=== PATIENT | female | born 1935 | race Two or more races ===

== ENCOUNTER 2019-01-20 20:56 | Inpatient (IN) | payer MEDICARE, OTHER ==
[~2019-01-20] VITALS: Ht 154.9 cm; Wt 70.4 kg
--- NOTE | 2019-01-20 21:15 | NUR ---
LORI FROM HOME C/O SOB X1.5DAYS. PER RA, LABORED BREATHING ON SCENE PT ARRIVED ON CPAP. PT LABORED BREATHING, TACHYPNEIC, SPEAKING ON HER COUNCIL LANGUAGE, FAMILY @ BS HELPING WITH TRANSLATION. DENIES CP, DIZZINESS, N/V AT THIS TIME. PLACED ON HISTORIC SITES SUPERVISOR. DR. GORDON @ BS FOR EVAL. PLACED ON BIPAP MACHINE. WILL CONT TO MONITOR.
[2019-01-20 21:32] VITALS: BP 98/36
[2019-01-20 21:42] LABS: BASOPHILS % (AUTO) 0.3 % (0.0-2.0); HEMATOCRIT 27 % (33-45); HEMOGLOBIN 8.8 g/dL (11.5-14.8); LYMPHOCYTES # (AUTO) 4.6 /CMM (0.8-4.8); LYMPHOCYTES % (AUTO) 47.2 % (20.0-44.0); MEAN CORPUSCULAR HGB CONC 33 g/dl (31.0-36.0); MEAN CORPUSCULAR VOLUME 100 fL (82-100); MONOCYTES # (AUTO) 0.7 /CMM (0.1-1.30); MONOCYTES % (AUTO) 7.1 % (2.0-12.0); NEUTROPHILS # (AUTO) 4.3 /CMM (1.8-8.9); NEUTROPHILS % (AUTO) 43.4 % (43.0-81.0); PLATELET COUNT (AUTO) 250 /CMM (150-450); RED BLOOD CELL COUNT(AUTO) 2.69 MIL/uL (4.0-5.2); WHITE BLOOD COUNT (AUTO) 9.8 K/uL (4.3-11.0)
--- NOTE | 2019-01-20 21:50 | NUR ---
CALLED RT FOR BREATHING TX.
[2019-01-20] MEDS ORDERED: FUROSEMIDE 40 MG/4 ML VIAL ONE (21:57)
[2019-01-20] MEDS ORDERED: ALBUTEROL FS 2.5 MG/3 ML VIAL.NEB NEB ONE (22:00)
[2019-01-20] MEDS ORDERED: IPRATROPIUM NEB FS 0.5 MG/2.5 ML AMPUL.NEB NEB ONE (22:00)
[2019-01-20] MEDS ORDERED: FUROSEMIDE 40 MG/4 ML VIAL IV ONE (22:00)
[2019-01-20] MEDS ORDERED: ALBUTEROL FS 2.5 MG/3 ML VIAL.NEB ONE (22:12)
[2019-01-20] MEDS ORDERED: IPRATROPIUM NEB FS 0.5 MG/2.5 ML AMPUL.NEB ONE (22:12)
--- NOTE | 2019-01-20 22:20 | NUR ---
MEDICATED ORDERED BY DR. GORDON. PT GETTING BREATHING TX. PT BRITTANY WELL. FAMILY AT BS & WILL CONT TO MONITOR.
[2019-01-20 22:24] LABS: CALCIUM, SERUM 8.6 mg/dL (8.5-10.1); CARBON DIOXIDE 18 mmol/L (21-32); CHLORIDE 106 mmol/L (98-107); CREATININE 1.6 mg/dL (0.6-1.3); GLUCOSE 312 mg/dL (74-106); POTASSIUM 5.5 mmol/L (3.5-5.1); SODIUM SERUM 137 mmol/L (136-145); UREA NITROGEN, BLOOD 27 mg/dL (7-18)
[2019-01-20 22:27] LABS: ABG BASE EXCESS -3.7 mmol/L; ABG OXYGEN SATURATION 98.4 % (92.0-98.5); ABG PCO2 35.8 mmHg (35.0-45.0); ABG PH 7.383 (7.350-7.450); ABG PO2 162.7 mmHg (75.0-100.0); AaDO2 81.3 mmHg; COHb 0.3 % (0.5-1.5); MetHb 0.5 % (0.0-1.5); O2Hb 97.6 % (94.0-97.0); PEEP,BG 5 cm H2O; SITE, ABG Right Radial; VENT MODE, BG BIPAP 18/5
[2019-01-20 22:39] LABS: ALANINE AMINOTRANSFERASE 28 U/L (12-78); ALBUMIN 2.5 g/dL (3.4-5.0); ALKALINE PHOSPHATASE 94 U/L (46-116); ASPARTATE AMINOTRANSFERASE 27 U/L (15-37); B-TYPE NATRIURETIC PEPTIDE 15877 PG/ML (0-125); BILIRUBIN,DIRECT 0.2 mg/dL (0.0-0.2); BILIRUBIN,TOTAL 0.6 mg/dL (0.2-1.0); TOTAL PROTEIN, SERUM 6.7 g/dL (6.4-8.2)
[2019-01-20 22:43] LABS: APPEARANCE,URINE Clear (CLEAR); BILIRUBIN,URINE Negative (NEGATIVE); BLOOD, URINE Negative Ery/uL (NEGATIVE); COLOR,URINE Yellow (YELLOW); KETONES,URINE Negative (NEGATIVE); LEUKOCYTE ESTERASE ,URINE Negative (NEGATIVE); NITRITE, URINE Negative (NEGATIVE); PH,URINE 5.5 (5.0-8.0); PROTEIN,URINE Negative (NEGATIVE); UGLUCOSE Negative (NEGATIVE); UROBILINOGEN,URINE 0.2 EU/dL (0.2)
--- NOTE | 2019-01-20 22:50 | NUR ---
PT FEELING A LOT BETTER. DENIES SOB, CP, DIZZINESS, N/V @ THIS TIME. PT BRITTANY BIPAP. SKIN PINK WARM & DRY, NO RESP DISTRESS NOTED @ THIS TIME. WILL CONT TO MONITOR.
[2019-01-20] MEDS ORDERED: ASPIRIN 325 MG TABLET PO SCH (23:00)
[2019-01-20] MEDS ORDERED: CEFTRIAXONE 1GM BAG (ER ONLY) 1 GM/50 ML PIGGYBACK IV ONE (23:00)
[2019-01-20] MEDS ORDERED: AZITHROMYCIN 500 MG in IV D5W 250 ML IV SCH (23:00)
--- NOTE | 2019-01-20 23:35 | NUR ---
ASSEMBLER AND TESTER ELECTRONICS NOTES Received patient from ER ,who presented today from home C/O SOB x 1-1/2 day getting worst.Has HX of HTN,GA ,AFIB,CHF. Was placed in BIPAP while in ER due to severe SOB,was given Lasix 40 mg IV and neb treatments. Lactic acid=5,HIU=74247,Troponin=0.11. Patient awake,alert,(Turkish Speaking,does not understand Czech) ,follows simple commands,family at bedside.Breathing more comfortably,off BIPAP for now ,on NRM 100 %,not in acute distress but still with mild SOB on exertion.Comfort care done,needs attended.Will closely monitor if BIPAP still needed.
--- NOTE | 2019-01-20 23:40 | NUR ---
REPORT GIVEN TO DONTE DIAZ FOR CONT OF CARE.
[2019-01-21] VITALS (29 sets, daily range): BP systolic 75–120; BP diastolic 47–75
[2019-01-21] MEDS ORDERED: Z GUARD REMEDY 2 OZ OINT TP PRN
[2019-01-21] MEDS ORDERED: MAGNESIUM HYDROXIDE 30 ML UDC PO PRN
[2019-01-21] MEDS ORDERED: ACETAMINOPHEN 325 MG TABLET PO PRN
[2019-01-21] MEDS ORDERED: ONDANSETRON HCL/PF 4 MG/2 ML VIAL IVP PRN
[2019-01-21] MEDS ORDERED: HYDROCODONE/APAP 5/325MG 1 EACH TABLET PO PRN
[2019-01-21] MEDS ORDERED: ZOLPIDEM TARTRATE 5 MG TABLET PO PRN
[2019-01-21] MEDS ORDERED: CEFTRIAXONE 1GM BAG (ER ONLY) 50 ML IV ONE (00:06)
[2019-01-21] MEDS ORDERED: IV NS 0.9% 250 ML IV PRN (00:30)
[2019-01-21] MEDS ORDERED: CEFTRIAXONE 1 G VIAL ONE (00:31)
--- NOTE | 2019-01-21 00:35 | NUR ---
Ceftriaxone given .Ordered in ER but was not given by RN
[2019-01-21] MEDS ORDERED: AZITHROMYCIN 500 MG VIAL ONE (00:41)
[2019-01-21] MEDS: HEPARIN SODIUM, PORCINE 5000 UNITS/1 ML VIAL SQ SCH ×3 (00:52→21:10)
[2019-01-21] MEDS ORDERED: ASA 81 PO (01:11)
[2019-01-21] MEDS ORDERED: APIX2.5T PO (01:11)
[2019-01-21] MEDS ORDERED: ISOSORBIDE MN PO (01:11)
[2019-01-21] MEDS ORDERED: CARV12.52 PO (01:11)
[2019-01-21] MEDS ORDERED: AMIO200T4 PO (01:11)
[2019-01-21] MEDS ORDERED: SITA100T PO (01:11)
[2019-01-21] MEDS ORDERED: HYDR-4077 PO (01:11)
[2019-01-21] MEDS ORDERED: LINA145C PO (01:11)
[2019-01-21] MEDS ORDERED: ATOR80TA PO (01:11)
[2019-01-21] MEDS ORDERED: PANT40TA4 PO (01:11)
[2019-01-21] MEDS: IV NS 0.9% 250 ML IV PRN (01:27)
--- NOTE | 2019-01-21 04:00 | NUR ---
Stable,now on NC 3L/min,tolerating well,saturating 99 % .Not in any acute distress,denies any chest pain.
[2019-01-21 04:35] LABS: BASOPHILS % (AUTO) 0.4 % (0.0-2.0); EOSINOPHILS % (AUTO) 0.4 % (0.0-6.0); HEMATOCRIT 24 % (33-45); LYMPHOCYTES % (AUTO) 35.7 % (20.0-44.0); MEAN CORPUSCULAR HGB CONC 34 g/dl (31.0-36.0); MEAN CORPUSCULAR VOLUME 97 fL (82-100); MONOCYTES # (AUTO) 0.4 /CMM (0.1-1.30); MONOCYTES % (AUTO) 7.5 % (2.0-12.0); NEUTROPHILS # (AUTO) 3.1 /CMM (1.8-8.9); PLATELET COUNT (AUTO) 162 /CMM (150-450); RED BLOOD CELL COUNT(AUTO) 2.48 MIL/uL (4.0-5.2); WHITE BLOOD COUNT (AUTO) 5.5 K/uL (4.3-11.0)
[2019-01-21 04:44] LABS: CALCIUM, SERUM 8.2 mg/dL (8.5-10.1); CARBON DIOXIDE 24 mmol/L (21-32); CHLORIDE 105 mmol/L (98-107); CREATININE 1.5 mg/dL (0.6-1.3); GLUCOSE 176 mg/dL (74-106); MAGNESIUM 1.5 mg/dL (1.8-2.4); PHOSPHORUS 3.7 mg/dL (2.5-4.9); POTASSIUM 4.3 mmol/L (3.5-5.1); SODIUM SERUM 139 mmol/L (136-145); UREA NITROGEN, BLOOD 26 mg/dL (7-18)
[2019-01-21 04:52] LABS: CHOLESTEROL 79 mg/dL (<200); HDL CHOLESTEROL 36 mg/dL (40-60); LDL 36 mg/dL (0-99); TRIGLYCERIDES 71 mg/dL (30-150)
--- NOTE | 2019-01-21 07:00 | NUR ---
STABLE,FOR DOWNGRADE TO TELEMETRY WHEN BED AVAILABLE.TOLERATING NASAL CANNULA,NO SOB.REPORT GIVEN TO LYNNE KENT.
[2019-01-21] MEDS: PANTOPRAZOLE 40 MG TABLET.DR PO SCH (08:28)
[2019-01-21] MEDS: ASPIRIN EC 81 MG TABLET.DR PO SCH (08:28)
[2019-01-21] MEDS: LINAGLIPTIN 5 MG TABLET PO SCH (08:28)
[2019-01-21] MEDS: FUROSEMIDE 40 MG/4 ML VIAL IV SCH ×4 (08:28→20:00)
[2019-01-21] MEDS: Magnesium 1GM/D5W 100ML PREMIX 100 ML IV SCH ×2 (08:28→08:39)
[2019-01-21] MEDS ORDERED: ASPIRIN 81 MG TAB.CHEW PO SCH (09:00)
[2019-01-21] MEDS ORDERED: Magnesium 1GM/D5W 100ML PREMIX 100 ML IV SCH (09:26)
[2019-01-21] MEDS ORDERED: FUROSEMIDE 40 MG/4 ML VIAL IV SCH (13:00)
--- NOTE | 2019-01-21 16:00 | NUR ---
rn note pt brought from icu by bed and via acls protocol, in stable condition, VS STABLE, CURRY IN PLACE, IV IN PLACE AND I/C/D. SR ON TELEMETRY. AOX3, FAMILY AT BEDSIDE. SAFETY MEASURES IN PLACE, CALL LIGHT WITHIN REACH, WILL MONITOR
[2019-01-21] MEDS: LINZESS 145 MCG PO SCH (18:31)
[2019-01-21] MEDS: POLYVINYL ALCOHOL 15 ML BOTTLE EACHEYE PRN (19:37)
[2019-01-22] VITALS (7 sets, daily range): BP systolic 100–136; BP diastolic 56–83
[2019-01-22 06:47] LABS: BASOPHILS % (AUTO) 0.4 % (0.0-2.0); EOSINOPHILS % (AUTO) 1.2 % (0.0-6.0); HEMATOCRIT 29 % (33-45); HEMOGLOBIN 9.7 g/dL (11.5-14.8); LYMPHOCYTES # (AUTO) 2.4 /CMM (0.8-4.8); LYMPHOCYTES % (AUTO) 35.7 % (20.0-44.0); MEAN CORPUSCULAR HGB CONC 34 g/dl (31.0-36.0); MEAN CORPUSCULAR VOLUME 96 fL (82-100); MONOCYTES # (AUTO) 0.5 /CMM (0.1-1.30); MONOCYTES % (AUTO) 7.5 % (2.0-12.0); NEUTROPHILS # (AUTO) 3.6 /CMM (1.8-8.9); NEUTROPHILS % (AUTO) 55.2 % (43.0-81.0); PLATELET COUNT (AUTO) 226 /CMM (150-450); RED BLOOD CELL COUNT(AUTO) 3.01 MIL/uL (4.0-5.2); WHITE BLOOD COUNT (AUTO) 6.6 K/uL (4.3-11.0)
[2019-01-22 06:50] LABS: ALANINE AMINOTRANSFERASE 29 U/L (12-78); ALBUMIN 2.5 g/dL (3.4-5.0); ALKALINE PHOSPHATASE 89 U/L (46-116); ASPARTATE AMINOTRANSFERASE 18 U/L (15-37); BILIRUBIN,TOTAL 0.9 mg/dL (0.2-1.0); CALCIUM, SERUM 8.7 mg/dL (8.5-10.1); CARBON DIOXIDE 26 mmol/L (21-32); CREATININE 1.3 mg/dL (0.6-1.3); GLUCOSE 161 mg/dL (74-106); MAGNESIUM 1.6 mg/dL (1.8-2.4); PHOSPHORUS 3.4 mg/dL (2.5-4.9); TOTAL PROTEIN, SERUM 7.1 g/dL (6.4-8.2); UREA NITROGEN, BLOOD 24 mg/dL (7-18)
[2019-01-22 06:54] LABS: CHLORIDE 104 mmol/L (98-107); POTASSIUM 4.4 mmol/L (3.5-5.1); SODIUM SERUM 140 mmol/L (136-145)
[2019-01-22 07:02] LABS: IRON, SERUM 25 ug/dl (50-175); TOTAL IRON BINDING CAPACITY 207 ug/dl (250-450)
[2019-01-22 07:48] LABS: FERRITIN 129 ng/mL (8-388)
--- NOTE | 2019-01-22 07:51 | NUR ---
CELLAR PACKER OPENING NOTE PATIENT RECEIVED IN BED SLEEPING. NO DISTRESS NOTED. NO SOB. A/O X 3, ON TELE SR 90'S BBB. R HAND #22 SL INTACT AND PATENT. CURRY IN PLACE DRAINING CLEAR YELLOW. SAFETY MEASURES IN PLACE, CALL LIGHT WITHIN REACH, WILL CONTINUE TO MONITOR
[2019-01-22] MEDS: LINZESS 145 MCG PO SCH (08:55)
[2019-01-22] MEDS: LINAGLIPTIN 5 MG TABLET PO SCH (08:55)
[2019-01-22] MEDS: ASPIRIN EC 81 MG TABLET.DR PO SCH (08:55)
[2019-01-22] MEDS: PANTOPRAZOLE 40 MG TABLET.DR PO SCH (08:55)
[2019-01-22] MEDS: HEPARIN SODIUM, PORCINE 5000 UNITS/1 ML VIAL SQ SCH ×2 (08:56→21:54)
[2019-01-22 09:38] LABS: ABG BASE EXCESS 4.3 mmol/L; ABG OXYGEN SATURATION 98.3 % (92.0-98.5); ABG PCO2 31.4 mmHg (35.0-45.0); ABG PH 7.547 (7.350-7.450); ABG PO2 138.9 mmHg (75.0-100.0); COHb 0.1 % (0.5-1.5); MetHb 0.3 % (0.0-1.5); O2Hb 97.9 % (94.0-97.0); SITE, ABG Right Radial; VENT MODE, BG NC 1L
[2019-01-22] MEDS: Magnesium 1GM/D5W 100ML PREMIX 100 ML IV SCH ×2 (10:41→11:45)
--- NOTE | 2019-01-22 19:20 | NUR ---
ENVIRONMENTAL FIELD OFFICE MANAGER NOTE PATIENT IS AOX3, [place] SPEAKING, ON TELE SR, WITH BBB, RESTING WITH HOB ELEVATED, DENIES PAIN, NO S/SX OF CARDIAC OR RESPIRATORY DISTRESS, ON ROOM AIR, F/C DRAINING TO GRAVITY, R HAND #22G IV SL, PATENT FLUSHING WELL, SKIN KEPT CLEAN AND DRY, SAFETY MAINTAINED AT ALL TIMES, BED IN LOW LOCKED POSITION, WILL CONTINUE TO MONITOR FOR CHANGES.
--- NOTE | 2019-01-22 20:05 | NUR ---
HOP GROWER CLOSING NOTE PATIENT IN BED SITTING UP WITH FAMLIY AT BEDSIDE. NO DISTRESS NOTED. NO SOB. A/O X 3, ON TELE SR 90'S BBB. R HAND #22 SL INTACT AND PATENT. NO NAUSEA/VOMITING. CURRY IN PLACE DRAINING CLEAR YELLOW. SAFETY MEASURES IN PLACE, CALL LIGHT WITHIN REACH, CARE ENDORSED TO CHEF TEACHER RN.
[2019-01-23] VITALS: BP 101/60
[2019-01-23 04:00] VITALS: BP 140/62
--- NOTE | 2019-01-23 07:05 | NUR ---
TENNIS BALL COVERER HAND OPENING NOTES RECEIVED PT LYING ON BED.ALERT/ORIENTED X2WITH HEBREW SPEAKING PT.ON TELE HR IS 85 WITH SR.ON NC 2L O2 CONTINUOUSLY.NO SOB AND ACUTE DISTRESS NOTED.FC IS IN PLACE WITH CLEAR YELLOW COLOR URINE.IV LINE IS ON RIGHT HAND G22,IV SITE IS CLEAN,DRY AND INTACT,NO INFILTRATION NOTED.SAFETY IS MAINTAINED AT ALL TIMES.BED IS IN LOW POSITION AND LOCKED.CALL LIGHT IS WITHIN REACH.WILL CONTINUE TO MONITOR THE PT CLOSELY.
[2019-01-23 07:08] LABS: BASOPHILS % (AUTO) 0.8 % (0.0-2.0); EOSINOPHILS % (AUTO) 2.4 % (0.0-6.0); HEMATOCRIT 26 % (33-45); LYMPHOCYTES % (AUTO) 41.5 % (20.0-44.0); MEAN CORPUSCULAR HGB CONC 34 g/dl (31.0-36.0); MEAN CORPUSCULAR VOLUME 95 fL (82-100); MONOCYTES # (AUTO) 0.3 /CMM (0.1-1.30); MONOCYTES % (AUTO) 7.2 % (2.0-12.0); NEUTROPHILS # (AUTO) 2.3 /CMM (1.8-8.9); NEUTROPHILS % (AUTO) 48.1 % (43.0-81.0); PLATELET COUNT (AUTO) 256 /CMM (150-450); RED BLOOD CELL COUNT(AUTO) 2.75 MIL/uL (4.0-5.2); WHITE BLOOD COUNT (AUTO) 4.8 K/uL (4.3-11.0)
[2019-01-23 08:00] VITALS: BP 130/68
[2019-01-23 08:55] LABS: CALCIUM, SERUM 8.7 mg/dL (8.5-10.1); CARBON DIOXIDE 28 mmol/L (21-32); CHLORIDE 104 mmol/L (98-107); CREATININE 1.1 mg/dL (0.6-1.3); GLUCOSE 131 mg/dL (74-106); MAGNESIUM 2.2 mg/dL (1.8-2.4); POTASSIUM 4.3 mmol/L (3.5-5.1); SODIUM SERUM 139 mmol/L (136-145); UREA NITROGEN, BLOOD 21 mg/dL (7-18)
[2019-01-23] MEDS: HEPARIN SODIUM, PORCINE 5000 UNITS/1 ML VIAL SQ SCH ×2 (09:06→21:02)
[2019-01-23] MEDS: LINAGLIPTIN 5 MG TABLET PO SCH (09:32)
[2019-01-23] MEDS: PANTOPRAZOLE 40 MG TABLET.DR PO SCH (09:32)
[2019-01-23] MEDS: LINZESS 145 MCG PO SCH (09:32)
[2019-01-23] MEDS: ASPIRIN EC 81 MG TABLET.DR PO SCH (09:32)
--- NOTE | 2019-01-23 11:10 | NUR ---
DRILLER MULTIPLE SPINDLE NOTES PT IS SITTING ON CHAIR WITH FAMILY AT BEDSIDE.ON ROOM AIR,PT REFUSED TO HAVE O2 VIA NC.OFFERED X3,STILL REFUSED.SATURATING WELL ON ROOM AIR.CONTINUE TO MONITOR THE PT CLOSELY.
[2019-01-23] MEDS: IV NS 0.9% 250 ML IV PRN (12:13)
[2019-01-23 16:00] VITALS: BP 122/55
--- NOTE | 2019-01-23 18:34 | NUR ---
MS RN NOTES PER SON,PT HAD BOWEL MOVEMENT TODAY IN THE RESTROOM AND THEY FORGOT TO CALL THE NURSE TO COLLECT STOOL SAMPLE.EXPLAINED TO THE PT AND SON SHOULD CALL THE NURSE WHEN SHE HAS NEXT BOWEL MOVEMENT.SON VERBALIZED UNDERSTOOD.
--- NOTE | 2019-01-23 18:37 | NUR ---
MS RN CLOSING NOTES PT IS LYING ON BED.ON ROOM AIR,TOLERATING WELL.O2 SAT IS 95%.NO SOB AND ACUTE DISTRESS NOTED.SON IS AT BEDSIDE.ALL DUE MEDS ARE GIVEN.ENDORSED TO DUDE RANCH MANAGER RN TO COLLECT THE STOOL SAMPLE.
--- NOTE | 2019-01-23 19:15 | NUR ---
MS RN NOTE RECEIVED PT IN STABLE CONDITION, A&O X3, ABLE TO MAKE NEEDS KNOWN. CURRENTLY IN BED WITH FAMILY AT BEDSIDE. NO SIGNS OF SOB OR DISTRESS, NO C/O PAIN. CURRY PATENT WITH ADEQUATE URINE DRAINING. ALL CURRENT NEEDS KNOWN. SAFETY PRECAUTIONS IN PLACE: BED LOW, LOCKED UPPER RAILS UP, AND CALL LIGHT WITHIN REACH. WILL CONT. TO MONITOR.
[2019-01-23 21:44] VITALS: BP 104/62
[2019-01-24 05:15] VITALS: BP 91/57
--- NOTE | 2019-01-24 06:22 | NUR ---
MS RN NOTE PT IN STABLE CONDITION, A&O X3, ABLE TO MAKE NEEDS KNOWN. CURRENTLY IN BED RESTING. NO SIGNS OF SOB OR DISTRESS, NO C/O PAIN. CURRY PATENT WITH ADEQUATE URINE DRAINING. ALL CURRENT NEEDS KNOWN. SAFETY PRECAUTIONS IN PLACE: BED LOW, LOCKED UPPER RAILS UP, AND CALL LIGHT WITHIN REACH. WILL CONT. TO MONITOR AND ENDORSE TO NEXT SHIFT FOR JOE.
[2019-01-24 07:27] LABS: BASOPHILS % (AUTO) 0.7 % (0.0-2.0); EOSINOPHILS % (AUTO) 2.2 % (0.0-6.0); HEMATOCRIT 25 % (33-45); HEMOGLOBIN 8.4 g/dL (11.5-14.8); LYMPHOCYTES # (AUTO) 2.1 /CMM (0.8-4.8); LYMPHOCYTES % (AUTO) 46.2 % (20.0-44.0); MEAN CORPUSCULAR HGB CONC 34 g/dl (31.0-36.0); MEAN CORPUSCULAR VOLUME 96 fL (82-100); MONOCYTES # (AUTO) 0.3 /CMM (0.1-1.30); MONOCYTES % (AUTO) 6.6 % (2.0-12.0); NEUTROPHILS % (AUTO) 44.3 % (43.0-81.0); PLATELET COUNT (AUTO) 215 /CMM (150-450); RED BLOOD CELL COUNT(AUTO) 2.63 MIL/uL (4.0-5.2); WHITE BLOOD COUNT (AUTO) 4.5 K/uL (4.3-11.0)
[2019-01-24 07:40] LABS: CALCIUM, SERUM 8.5 mg/dL (8.5-10.1); CARBON DIOXIDE 27 mmol/L (21-32); CHLORIDE 103 mmol/L (98-107); CREATININE 1.2 mg/dL (0.6-1.3); GLUCOSE 131 mg/dL (74-106); POTASSIUM 4.1 mmol/L (3.5-5.1); SODIUM SERUM 138 mmol/L (136-145); UREA NITROGEN, BLOOD 25 mg/dL (7-18)
[2019-01-24 08:00] VITALS: BP 116/63
[2019-01-24] MEDS: LINZESS 145 MCG PO SCH (10:17)
[2019-01-24] MEDS: ASPIRIN EC 81 MG TABLET.DR PO SCH (10:17)
[2019-01-24] MEDS: PANTOPRAZOLE 40 MG TABLET.DR PO SCH (10:17)
[2019-01-24] MEDS: LINAGLIPTIN 5 MG TABLET PO SCH (10:19)
[2019-01-24] MEDS: POLYVINYL ALCOHOL 15 ML BOTTLE EACHEYE PRN (10:22)
[2019-01-24] MEDS: HEPARIN SODIUM, PORCINE 5000 UNITS/1 ML VIAL SQ SCH (10:29)
[2019-01-24] MEDS ORDERED: PNEUMOCOCCAL 23-VAL P-SAC VAC 0.5 ML VIAL SQ ONE (14:30)
[2019-01-24] MEDS ORDERED: FURO20TA4 PO ×2 (15:14→15:16)
[2019-01-24 16:00] VITALS: BP 125/55
[2019-01-24 16:06] LABS: OCCULT BLOOD STOOL NEGATIVE (NEGATIVE)
--- NOTE | 2019-01-24 16:23 | NUR ---
Discontinued IV site. Clean, dry, intact skin. Small drainage. Placed clean 2x2 and kerlex. Removed ID bands from bilateral wrists. Gave all instructions to son and patient who verbalized understanding. Tommy Fernando RN
--- NOTE | 2019-01-24 17:07 | NUR ---
Discontinued alejo catheter. Patient tolerated procedure well. 400 ml urine out this shift.
== END 2019-01-24 18:00 | disposition home or self-care (01) | DRG 280 ==
LOC: ER 20:56 → ICU 22:43 → TELE1 01-21 12:22 → ICU 01-21 14:21 → TELE1 01-21 15:45 → MEDSG1 01-23 08:57
PROVIDERS: ADMIT Nurse Practitioner Acute Care; ATTEND Nurse Practitioner Acute Care
DX: I13.0 Hypertensive heart and chronic kidney disease with heart failure and stage 1 through stage 4 chronic kidney disease, or unspecified chronic kidney disease (principal); J96.01 Acute respiratory failure with hypoxia; I21.4 Non-ST elevation (NSTEMI) myocardial infarction; G93.41 Metabolic encephalopathy; N17.0 Acute kidney failure with tubular necrosis; I50.23 Acute on chronic systolic (congestive) heart failure; E44.0 Moderate protein-calorie malnutrition; D68.59 Other primary thrombophilia; E87.2 Acidosis; Z66 Do not resuscitate; I48.91 Unspecified atrial fibrillation; I25.10 Atherosclerotic heart disease of native coronary artery without angina pectoris; E87.5 Hyperkalemia; D63.8 Anemia in other chronic diseases classified elsewhere; N18.9 Chronic kidney disease, unspecified; I25.2 Old myocardial infarction; Z68.29 Body mass index [BMI] 29.0-29.9, adult; E66.9 Obesity, unspecified
CPT/HCPCS: 36415; 36600; 71045-TC; 80048-TC; 80053-TC; 80061-TC; 80076-TC; 81000-TC; 82272-TC; 82728-TC; 82803-TC; 82962-TC; 83540-TC; 83605-TC; 83735-TC; 83880; 84100-TC; 84484-TC; 85025-TC; 85730-TC; 87040-TC; 87081-TC; 93307-TC; 99082-TC; G0378; J0456; J0696; J1644; J1940; J2405; J3475; J7050; J7060